=== PATIENT | female | born 1955 | race Caucasian/White ===

== ENCOUNTER 2024-05-14 08:21 | Outpatient (CLI) | payer BC | END 2024-05-14 08:22 | disposition home or self-care (01) | LOC: CSHMAMMO 08:21 | PROVIDERS: ATTEND Internal Medicine | DX: Z12.31 Encounter for screening mammogram for malignant neoplasm of breast (principal); M85.89 Other specified disorders of bone density and structure, multiple sites; Z78.0 Asymptomatic menopausal state | CPT/HCPCS: 77063; 77067; 77080 ==